=== PATIENT | male | born 1965 | race Two or more races ===

== ENCOUNTER 2017-02-06 06:09 | Inpatient (IN) | payer OTHER ==
[~2017-02-06] VITALS: Ht 165.1 cm; Wt 78.0 kg
[2017-02-06] VITALS (19 sets, daily range): BP systolic 114–145; BP diastolic 73–92
[~2017-02-06 06:09] MED LIST: ACETAMINOPHEN-1 EAC1 ORAL; CYCLOBENZAPRINE10 MG ORAL; DYAZIDE1 CAP ORAL; GEMFIBROZIL600 MG ORAL; MELOXICAM15 MG PO
[2017-02-06] MEDS ORDERED: ESTAZOLAM2 MG PO (06:59)
[2017-02-06] MEDS ORDERED: BUPROPION XL150 MG ORAL (06:59)
[2017-02-06] MEDS ORDERED: OMEPRAZOLE20 M2 ORAL (06:59)
[2017-02-06] MEDS ORDERED: BUSPIRONE HCL10 M1 ORAL (06:59)
[2017-02-06] MEDS ORDERED: ALPRAZOLAM0.5 M2 ORAL (06:59)
--- NOTE | 2017-02-06 07:06 | Pre-Procedure Note/Attestation ---
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 I attest that, if there was a reasonable possibility of needing a blood transfusion, the patient (or the patient's legal financial representative) was given the [facility] standardized written summary, pursuant to the Williams Javier Blood Safety Act ([place] Health and Safety Code # 1645, as amended). I attest that I re-evaluated the patient just prior to the surgery and that there has been no change in the patient's H&P, except as documented below: JEFFY TORIBIO February 06, 2017 07:06
[2017-02-06] MEDS ORDERED: Thrombin 5000 units TOPIC ONE ×2 (08:09→09:46)
[2017-02-06] MEDS ORDERED: Bacitracin 50000 Units Vial ONE (08:10)
[2017-02-06] MEDS ORDERED: Bupivacaine w/Epi 0.5% 30ml Vial INJ ONE ×2 (08:10→09:08)
[2017-02-06] MEDS ORDERED: Thrombin 5000 units spray kit TOPIC ONE (08:10)
[2017-02-06] MEDS ORDERED: Gelfoam Absorbable 1gm powder pkt TOPIC ONE (08:11)
[2017-02-06] MEDS ORDERED: Heparin 5000 units/ml inj ONE (08:16)
[2017-02-06] MEDS ORDERED: Midazolam 2mg/2ml Inj ONE (08:30)
[2017-02-06] MEDS ORDERED: Sterile Water Irrig 1000ml IRRIG ONE (08:30)
[2017-02-06] MEDS ORDERED: Propofol 10mg/ml 100ml btl IV ONE (08:30)
[2017-02-06] MEDS ORDERED: Labetalol 5mg/ml 20ml vial IV ONE (08:30)
[2017-02-06] MEDS ORDERED: LR 1000ml ONE (08:30)
[2017-02-06] MEDS ORDERED: fentaNYL 100 mcg/2 mL IV ONE (08:30)
[2017-02-06] MEDS ORDERED: Zemuron 50mg/5ml Inj IV ONE (08:30)
[2017-02-06] MEDS ORDERED: NS Irrig 1000ml ONE (08:30)
--- NOTE | 2017-02-06 09:24 | Anethesia Preoperative Eval ---
Anesthesia Pre-op PMH/ROS General Date of Evaluation: February 06, 2017 Time of Evaluation: 07:10 Anesthesiologist: Howard ASA Score: ASA 2 Mallampati Score Class I : Soft palate, uvula, fauces, pillars visible Class II: Soft palate, uvula, fauces visible Class III: Soft palate, base of uvula visible Class IV: Only hard plate visible Mallampati Classification: Class III Surgeon: Coco Diagnosis: Multilevel intervertebral disc dessication Surgical Procedure: ALIF L4-5 Allergies: Coded Allergies: No Known Allergies (Unverified , 02/02/17) Past Medical History Cardiovascular: Reports: HTN, Denies: CAD, MA, arrhythmia, other, valve dz Pulmonary: Denies: COPD, ALEA, asthma, other Gastrointestinal/Genitourinary: Reports: GERD, Denies: CRI, ESRD, other Neurologic/Psychiatric: Reports: depression/anxiety, Denies: CVA, TIA, dementia, other PMH Narrative: HTN, GERD, hearing impaired Anesthesia Pre-op Phys. Exam Physician Exam Last Vital Signs Date Time Temp Pulse Resp B/P Pulse Ox O2 Delivery O2 Flow Rate FiO2 02/06/17 07:18 98.1 94 20 143/87 100 Room Air Constitutional: NAD Neurologic: CN 2-12 intact Cardiovascular: RRR, no M/R/G Respiratory: CTA Gastrointestinal: S/NT/ND Airway Exam Mallampati Score: Class III MO: full ROM: full Teeth: intact Anesthesia Pre-op A/P Labs WNL Studies Pre-op Studies: EKG - NSR, echo - Normal EF and wall motion Risk Assessment & Plan Assessment: No contraindication for ALIF Plan: GETA, Propofol drip Status Change Before Surgery: No Pre-Antibiotics Drug: Ancef Given Within 1 Hr of Incision: Yes Time Given: 08:45 BETSY TILLMAN M.D. February 06, 2017 09:24
[2017-02-06] MEDS ORDERED: LR 1000ml 1,000 ML IVLG SCH (09:25)
--- NOTE | 2017-02-06 09:25 | Immediate Post-Op Evaluation ---
Immediate Post-Op Evalulation Immediate Post-Op Evalulation Procedure: ALIF L4-5 Date of Evaluation: February 06, 2017 Time of Evaluation: 10:40 IV Fluids: 950 Estimated Blood Loss: 50 Blood Pressure Systolic: 114 Blood Pressure Diastolic: 75 Pulse Rate: 86 Respiratory Rate: 15 O2 Sat by Pulse Oximetry: 100 Temperature (Fahrenheit): 97.6 Pain Score (1-10): 0 Nausea: No Vomiting: No Complications No complication Patient Status: reacts, patent, extubated, none Hydration Status: adequate Drug: Ancef Given Within 1 Hr of Incision: Yes Time Given: 08:45 BETSY TILLMAN M.D. February 06, 2017 09:25
[2017-02-06] MEDS ORDERED: Meperidine 25mg/0.5ml Inj IV PRN (09:30)
[2017-02-06] MEDS ORDERED: LORazepam Inj 2mg/ml 1ml IV PRN (09:30)
[2017-02-06] MEDS ORDERED: Hydromorphone 0.5mg/0.5ml inj IVP PRN (09:30)
--- NOTE | 2017-02-06 10:21 | Operative Note - PDOC ---
Operative Note Operative Note Chief Complaint: Low Back and Left Leg Pain Pre-op Diagnosis: Instability with Disc herniation L-4-5 Procedure: L4-5 Anterior dedcompression and fusion with internal fixation Post-op Diagnosis: same as pre-op Operative Findings: consistent w/pre-op dx studies Surgeon: Coco Resin Mixer: DORIS Kelly Additional Surgeons: Ulises, Vascular Access Anesthesiologist: Howard Anesthesia: general Specimen: yes Complications: none Condition: stable Estimated Blood Loss: minimal Drains: none Implant(s) used?: Yes - Son InFix device Medium, 12 mm 3+3 degree, Son JEFFY MALDONADO February 06, 2017 10:21
[2017-02-06] MEDS ORDERED: Naloxone 0.4mg/ml Inj IVP PRN (11:00)
[2017-02-06] MEDS ORDERED: Rate Change PCA 1 Each MISC PRN (11:00)
[2017-02-06] MEDS ORDERED: DiphenhydrAMINE 50mg/ml Inj IVP PRN (11:00)
[2017-02-06] MEDS ORDERED: LORazepam 1mg tab ORAL PRN (11:00)
[2017-02-06] MEDS ORDERED: LR 1000ml 1,000 ML IV SCH (11:25)
[2017-02-06] MEDS: PCA HYDROmorphone 1mg/ml 30 ML IV PRN (12:20)
--- NOTE | 2017-02-06 13:46 | Diagnostic Imaging Report ---
Indications: Low back and bilateral lower cavity pain, lumbar fusion Technique: Above procedure including fluoroscopy performed by Dr. Higginbotham. Portable intraoperative spot film images of the lower lumbar spine performed in AP and lateral projections. Findings: Comparison: None Initial image demonstrates localizing needle tip and surgical implement overlying the anterior margin of the lumbar spine at the L4-5 level. Subsequent images demonstrate placement of fusion hardware within the L4-5 disc space, well centered. IMPRESSION: Surgical changes as described
[2017-02-06] MEDS ORDERED: Acetaminophen 650 MG SUPP RECTAL PRN (14:00)
[2017-02-06] MEDS: ceFAZolin sod 1 GM in D5W 55 ML IV SCH (17:22)
--- NOTE | 2017-02-06 17:59 | Operative Note - Dictated ---
DATE OF OPERATION: 02/06/2017 LOCATION: [facility]. SURGEON: Mulugeta Sepulveda M.D. ASSISTANTS: CATHERINE Neil CO-SURGEON FOR THE VASCULAR APPROACH AND DISKECTOMY: Alejandro Montgomery M.D. PREOPERATIVE DIAGNOSIS: Segmental instability and spondylosis at the L4-L5 level noted in flexion-extension films with lateral recess and foraminal narrowing. POSTOPERATIVE DIAGNOSIS: Segmental instability and spondylosis at the L4-L5 level noted in flexion-extension films with lateral. Recess and foraminal narrowing. OPERATIVE PROCEDURE: Left pararectus retroperitoneal approach to the lumbar spine. Vessel mobilization and retraction by Dr. Montgomery using a table fixed frame and reverse tip blades. Also done an anterior annulotomy and nuclear diskectomy with partial vertebrectomy and bilateral neural foraminotomy and microneurolysis. Open-reduction internal fixation at the L4-L5 level was accomplished using an InFix cage with a medium endplate with 3 + 3 degrees of added lordosis and 12 degrees of height. Fusion was accomplished with autogenous bone and bone protein. An image intensifier was used for placement of the cage and pulse oximetry was also used as well as a CellSaver. The patient was prepped and draped supine on the operating table in the usual manner. Bolster was placed in lumbar area to create normal lordosis. A left pararectus retroperitoneal approach was accomplished by Dr. Montgomery. The vessels were mobilized and retracted using a table fixed frame with reverse tip blades. Center of the disc at L4-L5 was marked and an AP and lateral image was taken. An anterior annulotomy was done with a 10 blade and then the cartilaginous endplate and soft disc was sequentially removed from the front to the back using lordotic distractors beginning at 8 mm and progressing to 13 used from side to side sequentially along with angled and straight larger to smaller curettes, Kerrisons, and pituitaries. Dissection was carried to the PLL and posterior disc anulus, which was released. Disc substance was removed from the canal and foramen. The remaining lateral soft tissues were distracted up to 12 mm with template. 3 + 3 degrees of lordosis was added for the endplate. There was good contact of the entire periphery of the apophyseal ring, both on AP and lateral with a medium foot plate. The final implant was inserted. The side supports were tapped into place. The position was checked and the side supports were then cold welded. There was good reconstitution of disc height and overall lordosis with good positioning of the implant at the periphery of the thecal body. There was no significant bleeding. Bone putty and autogenous bone were placed within the endplates. The vessels were checked and the layers were closed including the anterior and posterior rectus sheath, subcutaneous, and skin. Less than 100 mL of blood loss. The patient placed in a bulky compression dressing. Final x-rays taken and returned to recovery room in good condition. Mulugeta Sepulveda M.D. DR: ASHLEIGH JOB#: [id number] CC:
[2017-02-06] MEDS: PCA shift volume MISC SCH (19:09)
[2017-02-07 04:00] VITALS: BP 143/91
[2017-02-07] MEDS: PCA shift volume MISC SCH ×2 (07:18→19:27)
[2017-02-07 08:00] VITALS: BP 136/91
[2017-02-07] MEDS: ceFAZolin sod 1 GM in D5W 55 ML IV SCH ×3 (08:42)
--- NOTE | 2017-02-07 09:08 | History & Physical ---
History and Physical History & Physicial 5-8 HP reviewed care noted d/w CHET JASSO February 07, 2017 09:08
--- NOTE | 2017-02-07 09:09 | General Progress Note ---
Assessment/Plan Assessment/Plan Instability with Disc herniation L-4-5 L4-5 Anterior dedcompression and fusion with internal fixation back pain PLAN 1. incentive spirometry 2. SCD 3. PT evaluation and therapy 4. Hydration 5. Pain management 6. discharge once stable with outpatient follow up 7. NPO for now Subjective Allergies: Coded Allergies: No Known Allergies (Unverified , 02/02/17) Subjective noted pain awake and alert Objective Last 24 Hour Vital Signs Date Time Temp Pulse Resp B/P Pulse Ox O2 Delivery O2 Flow Rate FiO2 02/07/17 08:00 16 02/07/17 08:00 97.9 87 20 136/91 98 Room Air 02/07/17 04:00 16 02/07/17 04:00 98.1 87 16 143/91 100 Nasal Cannula 2.0 02/07/17 00:00 16 02/06/17 23:58 98.2 106 18 131/76 100 Nasal Cannula 2.0 02/06/17 20:05 97.9 101 18 139/84 100 Nasal Cannula 2.0 02/06/17 20:00 16 02/06/17 16:00 18 02/06/17 16:00 97.0 77 20 145/92 100 Nasal Cannula 2.0 02/06/17 14:00 97.0 81 20 127/74 100 Nasal Cannula 2.0 02/06/17 13:30 18 02/06/17 13:00 97.9 71 20 141/86 100 Nasal Cannula 2.0 02/06/17 13:00 18 02/06/17 12:57 18 02/06/17 12:42 18 02/06/17 12:41 98.0 70 18 114/79 100 Nasal Cannula 3.0 02/06/17 12:35 98.0 02/06/17 12:35 98.0 02/06/17 12:35 98.0 02/06/17 12:31 18 02/06/17 12:30 98.0 70 18 123/79 100 Nasal Cannula 3.0 02/06/17 12:20 18 02/06/17 12:15 69 18 138/73 100 Nasal Cannula 3.0 02/06/17 12:00 72 18 142/80 100 Nasal Cannula 3.0 02/06/17 11:54 74 18 130/83 100 Nasal Cannula 3.0 02/06/17 11:47 76 18 135/86 100 Nasal Cannula 3.0 02/06/17 11:35 72 18 122/73 100 Nasal Cannula 3.0 02/06/17 11:20 74 18 123/76 100 Nasal Cannula 3.0 02/06/17 11:05 75 18 128/84 100 Simple Mask 6.0 02/06/17 10:50 94 18 122/76 100 Simple Mask 6.0 02/06/17 10:40 88 14 121/75 100 Simple Mask 6.0 02/06/17 10:35 87 15 114/75 99 Simple Mask 6.0 02/06/17 10:35 86 15 100 02/06/17 10:30 97.6 86 14 115/73 98 Simple Mask 6.0 Intake and Output 02/06/17 02/07/17 19:00 07:00 Intake Total 1150 ml Output Total 250 ml Balance 900 ml Intake IV Total 1150 ml Output Urine Total 200 ml Estimated Blood Loss 50 ml # Voids 1 3 Height (Feet): 5 Height (Inches): 5.00 Weight (Pounds): 172 Objective WDWN NAD clear breath sounds bilaterally without rhonchi or wheeze [id number] without MRG no bowel sounds no CCE nonfocal CHET VARELA February 07, 2017 09:09
--- NOTE | 2017-02-07 10:34 | 48 Hour Post Anesthesia Eval ---
Post Anesthesia Evaluation Procedure: ALIF L4-5 Date of Evaluation: February 07, 2017 Time of Evaluation: 09:06 Blood Pressure Systolic: 136 0: 91 Pulse Rate: 87 Respiratory Rate: 20 Temperature (Fahrenheit): 97.9 O2 Sat by Pulse Oximetry: 98 Airway: patent Nausea: No Vomiting: No Pain Intensity: 3 Hydration Status: adequate Cardiopulmonary Status: Stable Mental Status/LOC: patient returned to baseline Follow-up Care/Observations: 0 Post-Anesthesia Complications: 0 Follow-up care needed: N/A Ignacio Moise MD February 07, 2017 10:34
[2017-02-07 12:00] VITALS: BP 132/86
[2017-02-07] MEDS: PCA HYDROmorphone 1mg/ml 30 ML IV PRN (13:31)
[2017-02-07 16:00] VITALS: BP 148/95
--- NOTE | 2017-02-07 18:49 | Operative Note - Dictated ---
DATE OF OPERATION: 02/06/2017 SURGEON: Alejandro Montgomery M.D., vascular surgeon. SPINE SURGEON: Mulugeta Sepulveda M.D. PREOPERATIVE DIAGNOSIS: Degenerative disc disease. POSTOPERATIVE DIAGNOSIS: Degenerative disc disease. PROCEDURE PERFORMED: Anterior retroperitoneal exposure of L4-L5 vertebral interspace. INDICATION: The patient is a very pleasant gentleman who was seen prior to surgery and scheduled for anterior fusion at L4-L5. He has no prior intra-abdominal surgery. No history of deep venous thrombosis or bleeding complications was described. The patient was made aware of the risks of surgery including possible bleeding, possible need for blood transfusion, and deep venous thrombosis. DESCRIPTION OF FINDINGS: A low vertical midline incision was made. Left retroperitoneal approach was used. There was no peritoneal or ureteral violation. There was no vascular injury. Exposure of L4-L5 was obtained by retraction of left iliac vessels towards the patient's right. Fluoroscopy was used to confirm the appropriate level. On completion, the peritoneum, ureter, and iliac vessels were intact. The patient had blood loss of approximately 50 mL and complications were none. DESCRIPTION OF PROCEDURE: The patient was taken to the operative room. General anesthesia was used. IV antibiotics were given. The patient's abdomen was prepped and draped. A low vertical midline incision was used. The anterior fascia was incised longitudinally in the midline. A plane was identified posterior to the left rectus abdominis and developed posterolaterally towards the patient's left. The retroperitoneal space was entered bluntly and the peritoneum and ureter were mobilized towards the patient's right exposing the left common iliac vessel. Dissection was carried to the left side of the left common iliac artery vein. Overlying lymphatics were ligated with vascular clips. The iliolumbar vein was identified and encircled using a 2-0 silk tie and then triply ligated proximally and distally with vascular clips. L4 segmental artery and vein were also identified and ligated with vascular clips and divided, and this allowed us to retract the left iliac vessels towards the patient's right and expose the anterior surface of L4-L5. The Omni retractor was set in place. Fluoroscopy was then used to confirm the appropriate level. Instrumentation fusion was performed at L4-L5, dictated separately. On completion, the peritoneum and ureter were intact. The iliac vessels were intact. Anterior fascia was then closed using number 1 PDS in a running fashion and the skin and subcutaneous tissue were closed using 3-0 Vicryl and 4-0 Monocryl running subcuticular closure technique. Estimated blood loss was 50 mL. Complications were none. Alejandro Montgomery M.D. DR: DALI JOB#: [id number] CC:
[2017-02-07 20:00] VITALS: BP 143/88
[2017-02-08] VITALS: BP 130/80
[2017-02-08 04:00] VITALS: BP 146/88
--- NOTE | 2017-02-08 06:23 | General Progress Note ---
Assessment/Plan Assessment/Plan Instability with Disc herniation L-4-5 L4-5 Anterior dedcompression and fusion with internal fixation back pain PLAN 1. incentive spirometry 2. SCD 3. PT evaluation and therapy 4. Hydration 5. Pain management 6. discharge once stable with outpatient follow up 7. advance diet per surgery Subjective Allergies: Coded Allergies: No Known Allergies (Unverified , 02/02/17) Subjective improved pain awake and alert Objective Last 24 Hour Vital Signs Date Time Temp Pulse Resp B/P Pulse Ox O2 Delivery O2 Flow Rate FiO2 02/08/17 04:00 99.1 111 16 146/88 99 Room Air 02/08/17 04:00 16 02/08/17 00:00 16 02/08/17 00:00 98.2 113 18 130/80 98 Room Air 02/07/17 21:13 99.0 02/07/17 20:00 100.6 99 16 143/88 98 Room Air 02/07/17 20:00 16 02/07/17 16:00 98.2 108 20 148/95 100 Room Air 02/07/17 16:00 16 02/07/17 12:00 16 02/07/17 12:00 98.2 97 20 132/86 99 Room Air 02/07/17 10:34 87 20 98 02/07/17 08:00 16 02/07/17 08:00 97.9 87 20 136/91 98 Room Air Intake and Output 02/07/17 02/08/17 19:00 07:00 Intake Total 674 ml 450 ml Balance 674 ml 450 ml Intake IV Total 674 ml 450 ml # Voids 2 3 Height (Feet): 5 Height (Inches): 5.00 Weight (Pounds): 172 Objective WDWN NAD clear breath sounds bilaterally without rhonchi or wheeze [id number] without MRG no bowel sounds no CCE nonfocal CHET VARELA February 08, 2017 06:23
[2017-02-08] MEDS: PCA shift volume MISC SCH ×2 (07:20→19:06)
[2017-02-08 08:00] VITALS: BP 151/98
[2017-02-08] MEDS ORDERED: LORazepam 1mg tab ORAL PRN (08:00)
[2017-02-08] MEDS ORDERED: DiphenhydrAMINE 50mg/ml Inj IVP PRN (08:00)
[2017-02-08] MEDS ORDERED: Naloxone 0.4mg/ml Inj IVP PRN (08:00)
[2017-02-08] MEDS ORDERED: Rate Change PCA 1 Each MISC PRN (08:00)
[2017-02-08] MEDS: Triamterene/Hctz 37.5/25 cap ORAL SCH (10:25)
[2017-02-08] MEDS: Cyclobenzaprine 10mg Tab ORAL SCH ×2 (10:26→17:44)
[2017-02-08] MEDS: BusPIRone 10mg Tab ORAL SCH ×2 (11:56→17:44)
[2017-02-08] MEDS: BuPROPion XL 150mg tab ORAL SCH (11:59)
[2017-02-08 12:00] VITALS: BP 143/89
[2017-02-08] MEDS: PCA HYDROmorphone 1mg/ml 30 ML IV PRN (13:23)
[2017-02-08 16:00] VITALS: BP 144/91
[2017-02-08 20:06] VITALS: BP 138/90
[2017-02-09 00:20] VITALS: BP 126/83
[2017-02-09 04:00] VITALS: BP 133/84
[2017-02-09] MEDS: PCA shift volume MISC SCH ×2 (07:05→19:07)
[2017-02-09] MEDS: Triamterene/Hctz 37.5/25 cap ORAL SCH (07:37)
[2017-02-09] MEDS: BusPIRone 10mg Tab ORAL SCH ×2 (07:37→16:39)
[2017-02-09] MEDS: BuPROPion XL 150mg tab ORAL SCH (07:37)
[2017-02-09] MEDS: Cyclobenzaprine 10mg Tab ORAL SCH ×2 (07:38→16:39)
--- NOTE | 2017-02-09 07:44 | General Progress Note ---
Assessment/Plan Assessment/Plan Instability with Disc herniation L-4-5 L4-5 Anterior dedcompression and fusion with internal fixation back pain PLAN 1. incentive spirometry 2. SCD 3. PT evaluation and therapy 4. Hydration 5. Pain management 6. discharge in am if tolerating diet 7. advance diet -start clears today Subjective Allergies: Coded Allergies: No Known Allergies (Unverified , 02/02/17) Subjective improved pain awake and alert passing gas Objective Last 24 Hour Vital Signs Date Time Temp Pulse Resp B/P Pulse Ox O2 Delivery O2 Flow Rate FiO2 02/09/17 04:00 97.9 88 19 133/84 97 Room Air 02/09/17 04:00 18 02/09/17 00:20 98.2 92 19 126/83 97 Room Air 02/09/17 00:00 18 02/08/17 20:06 98.4 87 18 138/90 97 Room Air 02/08/17 20:00 18 02/08/17 18:46 98.2 02/08/17 16:00 18 02/08/17 16:00 98.2 92 20 144/91 99 Room Air 02/08/17 13:54 98.2 02/08/17 12:00 98.2 94 20 143/89 99 Room Air 02/08/17 12:00 18 02/08/17 08:00 99.0 97 20 151/98 96 Room Air 02/08/17 08:00 18 Intake and Output 02/08/17 02/09/17 19:00 07:00 Intake Total 825 ml 750 ml Output Total 150 ml 500 ml Balance 675 ml 250 ml Intake IV Total 825 ml 750 ml Output Urine Total 150 ml 500 ml # Voids 1 Height (Feet): 5 Height (Inches): 5.00 Weight (Pounds): 172 Objective WDWN NAD clear breath sounds bilaterally without rhonchi or wheeze [id number] without MRG noted bowel sounds no CCE nonfocal CHET VARELA February 09, 2017 07:44
[2017-02-09 08:00] VITALS: BP 128/91
[2017-02-09 12:00] VITALS: BP 137/87
[2017-02-09] MEDS: PCA HYDROmorphone 1mg/ml 30 ML IV PRN (13:46)
[2017-02-09 16:00] VITALS: BP 137/93
[2017-02-09 20:00] VITALS: BP_SYST 116; BP_SYST 140; BP_DIAS 77; BP_DIAS 92
[2017-02-10 00:21] VITALS: BP 135/89
[2017-02-10 04:00] VITALS: BP 132/83
[2017-02-10] MEDS: PCA shift volume MISC SCH (07:00)
[2017-02-10 08:00] VITALS: BP 142/103
[2017-02-10] MEDS: BusPIRone 10mg Tab ORAL SCH (08:12)
[2017-02-10] MEDS: Triamterene/Hctz 37.5/25 cap ORAL SCH (08:13)
[2017-02-10] MEDS: BuPROPion XL 150mg tab ORAL SCH (08:13)
[2017-02-10] MEDS: Cyclobenzaprine 10mg Tab ORAL SCH (08:14)
[2017-02-10] MEDS ORDERED: Milk of Magnesia 30ml Ud ORAL PRN (08:30)
[2017-02-10] MEDS ORDERED: Norco 7.5mg/325mg tab ORAL PRN ×2 (09:00)
[2017-02-10] MEDS ORDERED: HYDROmorphone 1mg/ml Carpuject SUBQ PRN (09:00)
[2017-02-10] MEDS ORDERED: Norco 5mg/325mg tab ORAL PRN (09:00)
--- NOTE | 2017-02-10 09:46 | General Surgery Progress Note ---
General Surgery-Progress Note Subjective Procedure Performed L4-5 Anterior dedcompression and fusion with internal fixation Symptoms: improved, tolerating diet Objective Last 24 Hour Vital Signs Date Time Temp Pulse Resp B/P Pulse Ox O2 Delivery O2 Flow Rate FiO2 02/10/17 08:00 18 02/10/17 08:00 99.3 102 20 142/103 95 Room Air 02/10/17 04:00 97.9 98 18 132/83 93 Room Air 02/10/17 04:00 18 02/10/17 00:21 98.2 91 19 135/89 96 Room Air 02/10/17 00:00 18 02/09/17 20:00 98.2 87 20 140/92 96 Room Air 02/09/17 17:41 98.2 02/09/17 16:24 98.2 02/09/17 16:00 98.2 99 20 137/93 97 Room Air 02/09/17 16:00 20 02/09/17 14:22 98.1 02/09/17 12:00 18 02/09/17 12:00 98.1 78 20 137/87 98 Room Air I&O Intake and Output 02/09/17 02/10/17 19:00 07:00 Intake Total 720 ml Balance 720 ml Intake Oral 720 ml # Voids 5 Dressing: dry Wound: clean Drains: none Additional Comments Patient tolerating regular diet, PT/OT have completed training. Patient ready for discharge home. Dr. Ck zuleta. JEFFY TORIBIO February 10, 2017 09:46
[2017-02-10] MEDS ORDERED: HYDROmorphone 1mg/ml Carpuject IVP PRN (11:00)
[2017-02-10 12:00] VITALS: BP 144/89
--- NOTE | 2017-02-10 12:24 | General Progress Note ---
Assessment/Plan Assessment/Plan Instability with Disc herniation L-4-5 L4-5 Anterior dedcompression and fusion with internal fixation back pain PLAN 1. incentive spirometry 2. SCD 3. PT evaluation and therapy 4. laxatives 5. Pain management 6. discharge today Subjective Allergies: Coded Allergies: No Known Allergies (Unverified , 02/02/17) Subjective tolerating po awake and alert passing gas Objective Last 24 Hour Vital Signs Date Time Temp Pulse Resp B/P Pulse Ox O2 Delivery O2 Flow Rate FiO2 02/10/17 08:00 18 02/10/17 08:00 99.3 102 20 142/103 95 Room Air 02/10/17 04:00 97.9 98 18 132/83 93 Room Air 02/10/17 04:00 18 02/10/17 00:21 98.2 91 19 135/89 96 Room Air 02/10/17 00:00 18 02/09/17 20:00 98.2 87 20 140/92 96 Room Air 02/09/17 17:41 98.2 02/09/17 16:24 98.2 02/09/17 16:00 98.2 99 20 137/93 97 Room Air 02/09/17 16:00 20 02/09/17 14:22 98.1 Intake and Output 02/09/17 02/10/17 19:00 07:00 Intake Total 720 ml Balance 720 ml Intake Oral 720 ml # Voids 5 Height (Feet): 5 Height (Inches): 5.00 Weight (Pounds): 172 Objective WDWN NAD clear breath sounds bilaterally without rhonchi or wheeze [id number] without MRG noted bowel sounds no CCE nonfocal CHET VARELA February 10, 2017 12:24
--- NOTE | 2017-02-13 10:00 | Discharge Summary ---
Discharge Summary Hospital Course Date of Admission February 06, 2017 at 06:09 Date of Discharge February 10, 2017 at 13:50 Admitting Diagnosis Instability with disc herniation L-4-5 DDD Reason for Hospitalization: elective surgery HPI Edvin Campa is a 51 year old male who was admitted on February 06, 2017 at 06:09 for Mild Multilevel Intervertebral Disc Desiccation Consultations dr Stover IM Procedures 02/07 dr Sepulveda L4-5 Anterior decompression and fusion with internal fixation 02/07 dr Montgomery Anterior retroperitoneal exposure of L4-L5 vertebral interspace. Hospital Course s/p surgery Incentive spirometry SCD PT evaluation and therapy Bowel regimen Pain management pain controlled, incisiion clean, dry, inatct neurovaxular intact tolerated deit voided freely had BM stable fro discharge DISCHARGE DIAGNOSES DDD L spine Instability with disc herniation L-4-5 L4-5 anterior decompression and fusion with internal fixation back pain fup with surgeon as outpatient as specified by surgeon Discharge Medications Continued Medications: Alprazolam (Alprazolam) 0.5 Mg Tab.rapdis 0.5 MG ORAL TWICE A DAY, TAB Bupropion Xl* (Bupropion Xl*) 150 Mg Tab.er.24h 150 MG ORAL Q24H, TAB 0 Refills Buspirone Hcl* (Buspirone Hcl*) 10 Mg Tablet 10 MG ORAL TWICE A DAY, #60 TAB 0 Refills Cyclobenzaprine Hcl* (Flexeril*) 10 Mg Tablet 10 MG ORAL DA, TAB Estazolam (Estazolam) 2 Mg Tablet 2 MG PO, TAB Gemfibrozil (Gemfibrozil*) 600 Mg Tablet 600 MG ORAL DA, TAB 0 Refills Meloxicam* (Meloxicam*) 15 Mg Tablet 15 MG PO DAILY, TAB Omeprazole (Omeprazole) 20 Mg Capsule. 20 MG ORAL DAILY, CAP Triamterene/Hctz (Triamterene-Hctz 37.5-25 mg Cp) 1 Each Capsule 1 CAP ORAL DAILY, #10 CAP 0 Refills Discharge Condition Upon Discharge: stable Discharge Disposition Patient was discharged to Home () Discharge Diagnoses: Discharge Instructions Discharge Instructions Special Instructions I have been assigned to complete a D/C Summary on this account. I was not involved in the patient management Kristin Schneider NP (Vanchtein) February 13, 2017 10:00
== END 2017-02-10 13:50 | disposition home or self-care (01) | DRG 460 ==
LOC: SDSOVERFLO 06:09 → 3E 12:48
PROC: 0SB40ZZ Excision of Lumbosacral Disc, Open Approach (ICD-10-PCS; principal; 2017-02-06 08:00)
PROC: 0SG30A0 Fusion of Lumbosacral Joint with Interbody Fusion Device, Anterior Approach, Anterior Column, Open Approach (ICD-10-PCS; principal; 2017-02-06 08:00)
DX: M51.27 Other intervertebral disc displacement, lumbosacral region (principal); I10 Essential (primary) hypertension; M47.817 Spondylosis without myelopathy or radiculopathy, lumbosacral region; M53.2X7 Spinal instabilities, lumbosacral region; F32.9 Major depressive disorder, single episode, unspecified; F41.9 Anxiety disorder, unspecified; E78.00 Pure hypercholesterolemia, unspecified
CPT/HCPCS: 36415; 72020; 76001; 86850; 86900; 86901; 87081; 94003; 94150; J2180; J2250; J2405